=== PATIENT | male | born 1945 | race Two or more races ===

== ENCOUNTER 2019-10-25 08:05 | Day surgery (SDC) | payer MEDICARE, BC ==
[~2019-10-25] VITALS: Ht 180.3 cm; Wt 88.5 kg
[2019-10-25] VITALS (9 sets, daily range): BP systolic 111–164; BP diastolic 60–80
--- NOTE | 2019-10-25 06:35 | Pre-Procedure Note/Attestation ---
Pre-Procedure Note/Attestation Complete Prior to Procedure Planned Procedure: right - Removal of cataract and placement of intraocular lens, right eye Procedure Narrative: Removal of cataract and placement of intraocular lens, right eye Indications for Procedure Pre-Operative Diagnosis: Cataract, combined, right eye Attestation I attest that I discussed the nature of the procedure; its benefits; risks and complications; and alternatives (and the risks and benefits of such alternatives ), prior to the procedure, with the patient (or the patient's legal aircraft sales representative). I attest that, if there was a reasonable possibility of needing a blood transfusion, the patient (or the patient's legal aircraft sales representative) was given the [place] [facility] [employer] [facility] standardized written summary, pursuant to the [place] Blood Safety Act ([place] Health and Safety Code # 1645, as amended). I attest that I re-evaluated the patient just prior to the surgery and that there has been no change in the patient's H&P, except as documented below: Lizandro Cosby MD Oct 25, 2019 06:35
[~2019-10-25 08:05] MED LIST: ASPIRIN81 MG ORAL; HUMULIN N100 UNIT/1 SUBQ; LR 1000ml ONE; NS Irrig 1000ml ONE; Sterile Water Irrig 1000ml IRRIG ONE
[2019-10-25] MEDS: Ciprofloxacin Opth Soln 5ml RIGHT EYE SCH ×3 (08:30→09:05)
[2019-10-25] MEDS: Tobradex Opth Susp 2.5ml RIGHT EYE SCH ×3 (08:30→09:05)
[2019-10-25] MEDS: Diclofenac Sod 0.1% Op Soln RIGHT EYE SCH ×3 (08:30→09:05)
[2019-10-25] MEDS: Akten 3.5% 1ml Btl RIGHT EYE SCH ×3 (08:31→09:04)
[2019-10-25] MEDS: Tropicamide 1% Opth 15ml Soln RIGHT EYE SCH ×3 (08:31→09:05)
[2019-10-25] MEDS: Cyclopentolate 1% Opth Sol 2ml RIGHT EYE SCH ×3 (08:31→09:05)
[2019-10-25] MEDS: Phenylephrine 10% Opth Soln 5ml RIGHT EYE SCH ×3 (08:31→09:04)
[2019-10-25] MEDS ORDERED: METFORMIN HCL500 M1 ORAL (09:03)
[2019-10-25] MEDS ORDERED: EPINEPHrine 1mg/1ml Amp ONE (09:05)
[2019-10-25] MEDS ORDERED: Lidocaine 4% Amp 5ml ONE (09:05)
[2019-10-25] MEDS ORDERED: Lidocaine 1% MPF 10mg/ml 5ml ONE (09:05)
[2019-10-25] MEDS ORDERED: Maxitrol Opth Oint 3.5gm ONE (09:06)
[2019-10-25] MEDS ORDERED: Fluorescein Strips ONE (09:06)
[2019-10-25] MEDS ORDERED: Carbachol 0.01% Op Soln 1.5ml vial ONE (09:06)
[2019-10-25] MEDS ORDERED: timoloL maleate 0.5% Op Soln 2.5ml ONE (09:06)
[2019-10-25] MEDS ORDERED: prednisoLONE acetate 1% Opth Susp 1ml ONE (09:06)
[2019-10-25] MEDS ORDERED: Tetracaine 0.5% Opth 4ml Soln ONE (09:07)
[2019-10-25] MEDS ORDERED: BSS 15ml BTL ONE (09:07)
[2019-10-25] MEDS ORDERED: Povidone-Iodine 5% opth solution ONE (09:07)
[2019-10-25] MEDS ORDERED: BSS 500ml btl ONE (09:07)
[2019-10-25] MEDS ORDERED: Sodium Hyaluronate 10 mg/ml 0.85ml ONE (09:08)
[2019-10-25] MEDS ORDERED: fentaNYL 100 mcg/2 mL IV ONE (10:32)
[2019-10-25] MEDS ORDERED: LR 1000ml 1,000 ML IVLG SCH (10:58)
--- NOTE | 2019-10-25 10:58 | Anethesia Preoperative Eval ---
Anesthesia Pre-op PMH/ROS General Date of Evaluation: Oct 25, 2019 Time of Evaluation: 10:35 Anesthesiologist: Joelle ASA Score: ASA 3 Mallampati Score Class I : Soft palate, uvula, fauces, pillars visible Class II: Soft palate, uvula, fauces visible Class III: Soft palate, base of uvula visible Class IV: Only hard plate visible Mallampati Classification: Class II Surgeon: Harjeet Diagnosis: R eye cataract Surgical Procedure: Cataract extraction Anesthesia History: none Social History: smoking - h/o Family History: no anesthesia problems Allergies: Coded Allergies: No Known Allergies (Unverified , 10/23/19) Medications: see eMAR Patient NPO?: Yes Past Medical History Cardiovascular: Reports: HTN, arrhythmia - h/oA fib; Denies: CAD, SD, valve dz, other Pulmonary: Denies: asthma, COPD, ARIAN, other Gastrointestinal/Genitourinary: Reports: GERD, CRI; Denies: ESRD, other Neurologic/Psychiatric: Denies: dementia, CVA, depression/anxiety, TIA, other Endocrine: Reports: DM - on i; Denies: hypothyroidism, steroids, other HEENT: Reports: cataract (L) - s/p Sx; Denies: cataract (R), glaucoma, ABSENTEE-SHAWNEE (L), ABSENTEE-SHAWNEE (R), other Hematology/Immune: Denies: anemia, DVT, bleeding disorder, other Musculoskeletal/Integumentary: Reports: OA; Denies: RA, DJD, DDD, edema, other PMH Narrative: as above PSxH Narrative: L cataract, ex lap Anesthesia Pre-op Phys. Exam Physician Exam Last Vital Signs Date Time Temp Pulse Resp B/P (MAP) Pulse Ox O2 Delivery O2 Flow Rate FiO2 10/25/19 08:55 Room Air 10/25/19 08:51 96.9 66 18 164/68 98 Constitutional: NAD Neurologic: CN 2-12 intact Cardiovascular: RRR, no M/R/G Respiratory: CTA Gastrointestinal: S/NT/ND Airway Exam Mallampati Score: Class II MO: full Neck: stiff ROM: full Teeth: missing Dentures: no upper, no lower Anesthesia Pre-op A/P Labs Chemistry Test 10/25/19 08:38 POC Whole Blood Glucose Pending Studies Pre-op Studies: EKG - SR Risk Assessment & Plan Assessment: ASA 3 Plan: MAC Status Change Before Surgery: Kev Stanton MD Oct 25, 2019 10:58
[2019-10-25] MEDS ORDERED: fentaNYL 100 mcg/2 mL IV PRN (11:00)
--- NOTE | 2019-10-25 11:28 | Discharge Instructions ---
Discharge Instructions Discharge Instructions Follow Up Orders Continue preop eye drops Wear shield at all times except to place eye drops Followup in Dr Cosby's office tomorrow For Congestive Heart Failure Reminder Report to your physician any weight gain of 5 pounds or more in one week. Lizandro Cosby MD Oct 25, 2019 11:28
--- NOTE | 2019-10-25 11:29 | Brief Operative Note ---
Immediate Post Operative Note Operative Note Pre-op Diagnosis: Cataract, combined, right eye Procedure: Phaco PC IOL OD Post-op Diagnosis: same as pre-op Surgeon: Medina Cosby MD Jitney Driver: none Anesthesiologist: Dr Lai Anesthesia: local, MAC Specimen: none Complications: none Fluids: see chart Implant(s) used?: Yes - Orozco ZCB00 21.0 Lizandro Cosby MD Oct 25, 2019 11:29
--- NOTE | 2019-10-25 11:31 | Immediate Post-Op Evaluation ---
Immediate Post-Op Evalulation Immediate Post-Op Evalulation Procedure: R eye cataract extraction with IOL Date of Evaluation: Oct 25, 2019 Time of Evaluation: 11:30 IV Fluids: 500 Blood Products: none Estimated Blood Loss: none Urinary Output: none Blood Pressure Systolic: 153 Blood Pressure Diastolic: 67 Pulse Rate: 64 Respiratory Rate: 20 O2 Sat by Pulse Oximetry: 99 Temperature (Fahrenheit): 97.5 Pain Score (1-10): 1 Nausea: No Vomiting: No Complications none Patient Status: awake, patent, none Hydration Status: adequate Kev Lai MD Oct 25, 2019 11:31
--- NOTE | 2019-10-25 12:07 | 48 Hour Post Anesthesia Eval ---
Post Anesthesia Evaluation Procedure: R eye cataract extraction with IOL Date of Evaluation: Oct 25, 2019 Time of Evaluation: 12:06 Blood Pressure Systolic: 128 0: 76 Pulse Rate: 64 Respiratory Rate: 18 Temperature (Fahrenheit): 97.5 O2 Sat by Pulse Oximetry: 98 Airway: patent Nausea: No Vomiting: No Pain Intensity: 1 Hydration Status: adequate Cardiopulmonary Status: stable Mental Status/LOC: patient returned to baseline Follow-up Care/Observations: n/a Post-Anesthesia Complications: none Follow-up care needed: ready to discharge Kev Lai MD Oct 25, 2019 12:07
--- NOTE | 2019-10-25 15:45 | Operative Note - Dictated ---
DATE OF OPERATION: 10/25/2019 SURGEON: Lizandro Cosby MD. OFFICE RUNNER SURGEON: None. ANESTHESIOLOGIST: Kev Lai MD. ANESTHESIA: Local/standby/monitored anesthesia care. PREOPERATIVE DIAGNOSIS: Cataract, combined, right eye. POSTOPERATIVE DIAGNOSIS: Cataract, combined, right eye. PROCEDURE: 1. Phacoemulsification of cataract, right eye. 2. Placement of posterior chamber intraocular lens, right eye. SPECIMENS: None. COMPLICATIONS: None. INDICATIONS FOR SURGERY: The patient has had painless progressive decrease in visual acuity in the right eye secondary to cataract. The patient understands the risks of surgery including infection, bleeding, need for further surgery, loss of vision, no improvement in vision, loss of the eye, loss of life, glaucoma, and retinal detachment. He understands these risks and elects to proceed with surgery. FINDINGS: The patient had a +3 nuclear sclerotic cataract as well as +3 posterior subcapsular cataract, and a +1 cortical cataract. OPERATIVE NOTE: After informed consent was obtained, the patient was brought into the operative room, placed in supine position. Cardiac and respiratory monitors were attached. A time-out was performed and all criteria were met. Everyone in the room agreed. The right eye was then draped and prepped in sterile manner for ocular surgery. A lid speculum was placed in the eye. A 1% lidocaine preservative-free was injected at the approximate 8:30 limbus. A conjunctiva peritomy from approximately 8:30 to 9:30 was made and dissected posteriorly. Hemostasis was maintained with bipolar cautery. A 2.6 mm limbal incision was made centered at approximately 8:30 and dissected anteriorly. A paracentesis was made at approximately 12 o'clock and Shugarcaine was injected into the anterior chamber followed by Healon. The anterior chamber was then entered using a 2.6 mm keratome through the limbal incision. An anterior capsulorrhexis was then performed. Hydrodissection and hydrodelineation of the lens was then performed. The lens was then phacoemulsified using a divide and conquer four-quadrant technique. Residual cortical material was then aspirated. After removal of the nuclear material, there was noted to be an anterior capsular rent at approximately 7 o'clock, but this did not go past the equator and the edges were visibly observed anteriorly. Healon was injected into the anterior chamber and capsular bag. The lens was taken from its package, placed into the cartridge and the tip of the cartridge was placed through the limbal incision. The lens was injected into the capsular bag and centered nicely with the [place] hook. It was oriented so as perpendicular to the 7 o'clock runs. Healon was aspirated from the anterior chamber and capsular bag. One 10-0 nylon interrupted suture was then placed through the limbal incision. The knot was rotated and buried. Care was taken during the entire procedure not to touch the endothelium. The wounds were checked and found to be watertight and there were also hydrated closed. The lid speculum drapes were removed from the eye and the eye was examined again and the lens was noted to be aligned perpendicular to the 7 o'clock runs with both haptics and the optic in the capsular bag. After the lid speculum again was removed, the antibiotic drops of TobraDex, ciprofloxacin, and Pred Forte were applied to the eye followed by Maxitrol ointment and a shield. The patient tolerated the procedure well and left the operating room awake, alert, and in stable condition. Lizandro Cosby M.D. DR: RALF JOB#: [id number] CC:
== END 2019-10-25 12:35 | disposition home or self-care (01) ==
LOC: SUR 08:05
DX: H25.11 Age-related nuclear cataract, right eye (principal); H25.011 Cortical age-related cataract, right eye; H25.041 Posterior subcapsular polar age-related cataract, right eye; I10 Essential (primary) hypertension; K21.9 Gastro-esophageal reflux disease without esophagitis; E11.9 Type 2 diabetes mellitus without complications; Z79.4 Long term (current) use of insulin
CPT/HCPCS: 66984; 82962; 94003; J0171; J1100; J2704; J3010; J7120; U0002; V2632; 94150